=== PATIENT | male | born 1970 | race Two or more races ===

== ENCOUNTER 2021-11-03 10:14 | Outpatient (REF) | payer BC, SELFPAY ==
--- NOTE | ~2021-11-03 | XR_ITS ---
EXAMINATION: XR KNEE AP UPRIGHT, BILATERAL XR KNEE TWO ADDITIONAL VIEWS, LEFT CLINICAL INFORMATION: Pain in the knee. COMPARISON: None TECHNIQUE: AP upright of both knees. Lateral and patella view of left knee. FINDINGS: LEFT KNEE: The bones, joints and soft tissues are normal without effusion. LIMITED RIGHT KNEE AP UPRIGHT: The medial and lateral compartments are normal. Bone normal. Patellofemoral compartment not evaluated . XR/XR knee standing BI IMPRESSION: Left knee: Normal. Limited right knee: Normal.
--- NOTE | ~2021-11-03 | XR_ITS ---
EXAMINATION: XR KNEE AP UPRIGHT, BILATERAL XR KNEE TWO ADDITIONAL VIEWS, LEFT CLINICAL INFORMATION: Pain in the knee. COMPARISON: None TECHNIQUE: AP upright of both knees. Lateral and patella view of left knee. FINDINGS: LEFT KNEE: The bones, joints and soft tissues are normal without effusion. LIMITED RIGHT KNEE AP UPRIGHT: The medial and lateral compartments are normal. Bone normal. Patellofemoral compartment not evaluated . XR/XR knee LT 2V IMPRESSION: Left knee: Normal. Limited right knee: Normal.
== END 2021-11-03 10:15 | disposition home or self-care (01) ==
LOC: HO.HOSX 10:14
PROVIDERS: Visit Provider Physician Assistant
DX: M25.562 Pain in left knee (principal); S80.02XD Contusion of left knee, subsequent encounter; V04 Pedestrian injured in collision with heavy transport vehicle or bus
CPT/HCPCS: 73560; 73565; 99202

== ENCOUNTER → 2021-12-15 10:37 | Outpatient (BNVA) | payer OTHER, BC, SELFPAY | PROVIDERS: PCP Family Medicine; Visit Provider Physician Assistant | DX: M25.562 Pain in left knee (principal); S80.02XA Contusion of left knee, initial encounter | CPT/HCPCS: 99212 ==

== ENCOUNTER 2022-04-20 08:15 | Outpatient (REF) | payer OTHER, SELFPAY ==
--- NOTE | ~2022-04-20 | MR_ITS ---
EXAMINATION: MR KNEE WITHOUT CONTRAST, LEFT CLINICAL INFORMATION: Knee pain. Patient reports injury 7 months ago. COMPARISON: X-ray 11/03/2021 TECHNIQUE: MRI of the knee without contrast was performed using routine sequences on a high-field scanner. FINDINGS: Motion artifact degrading images, limiting evaluation. Technologist notes indicate patient was claustrophobic. MENISCI: Medial Meniscus: Intact Lateral Meniscus: Intact LIGAMENTS: Cruciate: Mild T2 signal in the mid and distal ACL, could reflect mucoid degeneration or sprain. Intact PCL.. Collateral: Intact EXTENSOR MECHANISM: Intact ARTICULAR CARTILAGE/BONE: Patellofemoral Compartment: Artifactual signal on the axial sequences, limiting evaluation. As seen on the sagittal sequence, there is cartilage heterogeneity, fissuring and subchondral edema in the central trochlear. No gross cartilage loss is otherwise evident in the sagittal sequence. Medial Compartment: No focal cartilage loss is appreciated Lateral Compartment: No focal cartilage loss is appreciated No suspicious marrow signal changes. No fracture. JOINT FLUID AND BURSAE: Small effusion. Tiny Garvey's cyst. Additional findings: Prominent edema in the visualized proximal medial gastrocnemius muscle which could reflect strain injury. MR/MR knee LT wo con IMPRESSION: 1. Motion artifact degrading images, limiting evaluation. Repeat MRI as clinically warranted. 2. ACL findings could reflect mucoid degeneration or sprain. 3. Menisci appear intact without discrete tear. 4. Mild patellofemoral arthritis. 5. Small effusion. 6. Prominent edema in the visualized proximal medial gastrocnemius muscle, could reflect strain injury. Clinically correlate.
== END 2022-04-20 08:16 | disposition home or self-care (01) ==
LOC: HO.MRI 08:15
PROVIDERS: PCP Family Medicine; Visit Provider Physician Assistant
DX: M25.562 Pain in left knee (principal); S80.02XA Contusion of left knee, initial encounter; X58.XXXA Exposure to other specified factors, initial encounter; Y93.9 Activity, unspecified; Y92.9 Unspecified place or not applicable; Y99.9 Unspecified external cause status
CPT/HCPCS: 73721

== ENCOUNTER → 2022-04-25 10:41 | Outpatient (BNVA) | payer OTHER, BC, SELFPAY | PROVIDERS: PCP Family Medicine; Visit Provider Physician Assistant | DX: S80.02XA Contusion of left knee, initial encounter (principal) | CPT/HCPCS: 99212 ==

== ENCOUNTER → 2022-11-24 09:43 | Outpatient (BNVA) | payer SELFPAY | PROVIDERS: PCP Family Medicine; Visit Provider Internal Medicine ==